=== PATIENT | male | born 1980 | race Hispanic/Latino ===

== ENCOUNTER 2019-02-08 01:39 | Emergency (ER) | payer BC, OTHER ==
[2019-02-08] MEDS ORDERED: TRAMADOL HCL 50 MG TABLET ONE (02:33)
[2019-02-08] MEDS ORDERED: TETANUS/DIPHTHERIA TOXOID [ADULT] 0.5 ML VIAL IM ONE (02:34)
== END 2019-02-08 03:36 | disposition home or self-care (01) ==
LOC: EDH 01:39
DX: S90.211A Contusion of right great toe with damage to nail, initial encounter (principal); I10 Essential (primary) hypertension; Z90.49 Acquired absence of other specified parts of digestive tract; W22.8XXA Striking against or struck by other objects, initial encounter; Y93.89 Activity, other specified; Y92.89 Other specified places as the place of occurrence of the external cause; Y99.8 Other external cause status
CPT/HCPCS: 73660; 90471; 90714